=== PATIENT | female | born 1980 | race Caucasian/White ===

== ENCOUNTER 2016-11-26 10:07 | Emergency (ER) | payer OTHER ==
[~2016-11-26 10:07] MED LIST: ACETAMINOPHEN650 MG PR; ARMODAFINIL150 MG GT; BACLOFEN20 M1 GT; BIOFREEZE118 M1 TOP; BISCOLAX10 MG PR; CITALOPRAM10 MG/5 M1 GT; DANDRUFF SHAMP TOP; DOCUSATE SODIU100 M2 GT; ENEMA133 M4 PR; JEVITY 1 CAL237 ML PO; K-SOL20 MEQ/15 GT; KEPPRA100 MG/1 M GT; LEVAQUIN250 M3 PO; METOPROLOL TART25 M1 GT; MILK OF MAGNESIA GT; MIRALAX17 G2 GT; NAPROSYN500 M1 GT; NEOMYC-POLYM-D3.5 G1 OP; NEOMYCIN-POLY-7.5 ML OP; NUVIGIL GT; POTASSIUM20 MEQ/13 GT; SENEXON GT; TAMIFLU75 MG/CAP PO; TOBRADEX EYE DRO5 M1 EACH EYE; TOBRAMYCIN-DEXAM5 M2 OP; TYLENOL325 M2 GT; TYLENOL325 M2 PO; XARELTO10 M1 GT; ZOFRAN8 M1 GT; [UNRECOGNIZED DRUG - OTHER] GT; [UNRECOGNIZED DRUG - OTHER] GT
[2016-11-26] MEDS ORDERED: IPRAT-ALBUT 0.5-3 ML INH (11:56)
[2016-11-26] MEDS ORDERED: XANAX0.25 M1 GT (12:07)
== END 2016-11-26 11:50 ==
LOC: EDMED 10:07
PROC: 0D20XUZ Change Feeding Device in Upper Intestinal Tract, External Approach (ICD-10-PCS; principal; 2016-11-26)
DX: T85.528A Displacement of other gastrointestinal prosthetic devices, implants and grafts, initial encounter (principal)
CPT/HCPCS: Q9967